=== PATIENT | female | born 1980 | race Caucasian/White ===

== ENCOUNTER 2020-09-20 10:11 | Emergency (ER) | payer OTHER ==
[~2020-09-20] VITALS: Ht 157.5 cm; Wt 53.1 kg
[~2020-09-20 10:11] MED LIST: KETO10TA2 PO; NEURONTIN300 MG PO; ORPH100T PO
[2020-09-20] MEDS ORDERED: PRENATABS FA T1 EACH (10:26)
== END 2020-09-20 16:01 | disposition home or self-care (01) ==
LOC: ER 10:11
DX: O20.0 Threatened abortion (principal)

== ENCOUNTER → 2020-10-02 | Outpatient (CLI) | payer OTHER ==
[~2020-10-02] MED LIST changes: +PRENATABS FA T1 EACH
== END | disposition home or self-care (01) ==
LOC: PRENATAL 10:45
PROVIDERS: ATTEND Obstetrics & Gynecology Maternal & Fetal Medicine
DX: Z36.89 Encounter for other specified antenatal screening (principal); O36.80X1 Pregnancy with inconclusive fetal viability, fetus 1; Z3A.12 12 weeks gestation of pregnancy

== ENCOUNTER 2020-12-04 07:56 | Outpatient (CLI) | payer OTHER | END 2020-12-04 08:58 | disposition home or self-care (01) | LOC: PRENATAL 07:56 | PROVIDERS: ATTEND Obstetrics & Gynecology Maternal & Fetal Medicine | DX: O35.0XX1 Maternal care for (suspected) central nervous system malformation in fetus, fetus 1 (principal); O35.3XX1 Maternal care for (suspected) damage to fetus from viral disease in mother, fetus 1; O98.512 Other viral diseases complicating pregnancy, second trimester; O09.512 Supervision of elderly primigravida, second trimester; Z36.89 Encounter for other specified antenatal screening; Z3A.20 20 weeks gestation of pregnancy ==

== ENCOUNTER 2021-02-26 08:26 | Outpatient (CLI) | payer OTHER | END 2021-02-26 08:50 | disposition home or self-care (01) | LOC: PRENATAL 08:26 | PROVIDERS: ATTEND Obstetrics & Gynecology Maternal & Fetal Medicine | DX: O26.843 Uterine size-date discrepancy, third trimester (principal); O09.523 Supervision of elderly multigravida, third trimester; O36.8131 Decreased fetal movements, third trimester, fetus 1; Z36.89 Encounter for other specified antenatal screening; Z3A.31 31 weeks gestation of pregnancy ==

== ENCOUNTER 2021-03-17 06:08 | Inpatient (IN) | payer OTHER ==
[~2021-03-17] VITALS: Ht 157.5 cm; Wt 1.8 kg
[2021-03-17] MEDS ORDERED: CHILDREN'S ASPI81 MG (08:04)
[2021-03-17] MEDS ORDERED: ST. JOSEPH ASPI81 M2 (14:41)
== END 2021-03-19 18:42 | disposition home or self-care (01) | DRG 786 ==
LOC: OB/GYN 06:08 → LDR 06:08 → OB/GYN 19:07
PROVIDERS: ADMIT Student in an Organized Health Care Education/Training Program; ATTEND Student in an Organized Health Care Education/Training Program
PROC: 4A1HXFZ Monitoring of Products of Conception, Cardiac Rhythm, External Approach (ICD-10-PCS; 2021-03-17)
PROC: 10D00Z1 Extraction of Products of Conception, Low, Open Approach (ICD-10-PCS; principal; 2021-03-17 18:00)
DX: O76 Abnormality in fetal heart rate and rhythm complicating labor and delivery (principal); O60.14X0 Preterm labor third trimester with preterm delivery third trimester, not applicable or unspecified; O42.013 Preterm premature rupture of membranes, onset of labor within 24 hours of rupture, third trimester; Z3A.35 35 weeks gestation of pregnancy; Z37.0 Single live birth